=== PATIENT | female | born 1980 | race American Indian/Alaskan Native ===

== ENCOUNTER 2018-08-21 17:48 | Emergency (ER) | payer SELFPAY ==
[2018-08-21 18:08] VITALS: BP 164/101
--- NOTE | 2018-08-21 22:26 | Emergency Department Report ---
Abscess Boil HPI - HPI Chief Complaint: Extremity Injury, Upper Stated Complaint: FINGER SWOLLEN Duration: 4 Days Location: Upper Extremity (right first digit) Severity: Moderate History: Yes Pain, No Fever, No Purulent Drainage, No Numbness, No Foreign Body, No Previous History, No Insect Bite HPI: This is a 38-year-old female who presents with swelling and pain around the cuticle for 4 days. Patient states she from her finger 4 days ago and then an pain ever since. There is swelling and decreasing range of motion. She denies fever, drainage, numbness or tingling, weakness, or paresthesias. Home Medications: Previous Rx's Medication Instructions Recorded Last Taken Type Ibuprofen [Motrin 600 MG tab] 600 mg PO Q8H PRN #15 tablet 08/21/18 Unknown Rx Sulfamethoxazole/Trimethoprim 1 each PO BID #14 tablet 08/21/18 Unknown Rx [Bactrim DS TAB] Allergies/Adverse Reactions: Allergies Allergy/AdvReac Type Severity Reaction Status Date / Time No Known Allergies Allergy Unverified 08/21/18 18:08 ED Review of Systems ROS: Stated complaint: FINGER SWOLLEN Other details as noted in HPI Constitutional: denies: chills, fever Respiratory: denies: cough, shortness of breath, wheezing Cardiovascular: denies: chest pain, palpitations Gastrointestinal: denies: abdominal pain, nausea, diarrhea Skin: lesions (swelling and pain around cuticle of first digit). denies: rash Neurological: denies: headache, weakness, paresthesias Psychiatric: denies: anxiety, depression ED Past Medical Hx - Past Medical History Previous Medical History?: No Additional medical history: - Surgical History Past Surgical History?: Yes - Social History Smoking Status: Never Smoker Substance Use Type: None - Medications Home Medications: Home Medications Medication Instructions Recorded Confirmed Last Taken Type Ibuprofen [Motrin 600 MG tab] 600 mg PO Q8H PRN #15 tablet 08/21/18 Unknown Rx Sulfamethoxazole/Trimethoprim 1 each PO BID #14 tablet 08/21/18 Unknown Rx [Bactrim DS TAB] ED Abscess Boil Physical Exam - Exam General: Vital signs noted. No distress. Alert and acting appropriately. Front/Back of Body, Lg (Color): 1 - Pain, swelling, pale deistened paronychium of first phalanx, nail bed intact, normal color, normal capillary refill, normal senstation to touch. Limited ROM secondary swelling and pain. Size: 1 cm Exam: Yes Tenderness, Yes Fluctuance, Yes Surrounding Cellulites/Erythema, Yes Normal Neurologic Exam, Yes Normal Circulation, No Lymphangitis, No Crepitation, No Heart Murmur I & D Note - I & D Note I & D Note: The area was prepared and draped in the usual, sterile manner. The site was anesthetized with 1% lidocaine without epinephrine. A linear incision along the local skin lines was made and the purulent material expressed. The abcess was explored thoroughly and sequestered pockets were opened. Bleeding was minimal. Packing: idodoform. Followup: The patient tolerated the procedure well without complications. Standard post-procedure care was explained and return precautions are given. ED Course Vital Signs 08/21/18 18:04 Temperature 98.5 F Pulse Rate 86 Respiratory 18 Rate Blood Pressure 164/101 O2 Sat by Pulse 100 Oximetry Critical care attestation.: If time is entered above; I have spent that time in minutes in the direct care of this critically ill patient, excluding procedure time. ED Medical Decision Making - Medical Decision Making This is a 38 y.o. female that presents with a painful abscess to right distal phalanx for 4 days. Patient is stable and examined by me. Physical assessment susceptible paronychia to the right first phalanx. No acute signs of distress noted. Given norco 5/325 mg po once in ER. I&D refer to note. Discussed plan to start bactrim DS and ibuprofen with patient. Educated patient on follow up plan to have wound reassessed in 2-3 days by primary care provider. Patient agrees to ED plan of care. Discharged home and follow up with PCP in 2-3 days. ED Disposition Clinical Impression: Paronychia of right thumb Disposition: - TO HOME OR SELFCARE Is pt being admited?: No Does the pt Need Aspirin: No Condition: Stable Instructions: Paronychia (ED), Incision and Drainage (ED) Additional Instructions: Complete full round of bactrim DS antibiotic as prescribed. Follow up with PCP or ER in 2-3 days to have wound reevaluated. Return to ER if foul smelling discharge, swelling, or severe pain to wound. Prescriptions: Ibuprofen [Motrin 600 MG tab] 600 mg PO Q8H PRN #15 tablet PRN Reason: Pain Sulfamethoxazole/Trimethoprim [Bactrim DS TAB] 1 each PO BID #14 tablet Referrals: [facility] [Outside] - 3-5 Days [facility] [Outside] - 3-5 Days [facility] [Outside] - 3-5 Days Time of Disposition: 22:54
[2018-08-21] MEDS ORDERED: XYLOCAINE 1% MPF 5 mL INFILTRATI ONE (22:33)
[2018-08-21] MEDS ORDERED: NORCO 5/325 PO ONE (22:51)
== END 2018-08-21 23:25 | disposition home or self-care (01) ==
LOC: ED 17:48
DX: L03.011 Cellulitis of right finger (principal)